=== PATIENT | male | born 1955 | race Caucasian/White ===

== ENCOUNTER 2021-09-02 15:10 | Emergency (ER) | payer MEDICARE, SELFPAY ==
--- NOTE | ~2021-09-02 | XR_ITS ---
EXAMINATION: XR hand LT min 3V INDICATION: Lacerations and pain of the left second and third fingers TECHNIQUE: Three views of the left hand are obtained COMPARISON: None available FINDINGS: There is no fracture, dislocation, or subluxation. The bones and joint spaces are normal. T here is soft tissue swelling of the second and third fingers. IMPRESSION: 1. No acute osseous abnormality. Reviewed, dictated and finalized at location F.
[2021-09-02 15:55] VITALS: BP 130/67; PULSE 61; RESP 16; TEMP 36.7; O2SAT 99
--- NOTE | 2021-09-02 16:45 | PC.NURSE ---
[facility] in [place] as pharmacy unable to locate in this system
--- NOTE | 2021-09-02 17:13 | ED.WOUNDLAC ---
HPI - Wound/Laceration General Chief Complaint: Wound/Laceration Stated Complaint: fingers lac Time Seen by Provider: 09/02/21 17:04 Source: patient Mode of arrival: ambulatory Limitations: no limitations History of Present Illness HPI narrative: This is a 66-year-old male that presents to the emergency department for a laceration sustained to the left hand. Reports he was trimming branches off of a tree. He accidentally sustained lacerations from a pruning saw. He is not up-to-date on tetanus. Denies decreased range of motion or numbness. Related Data Home Medications Medication Instructions Recorded Confirmed amlodipine DAILY 09/02/21 atorvastatin DAILY 09/02/21 lisinopril DAILY 09/02/21 propranolol PO DAILY 09/02/21 Allergies Allergy/AdvReac Type Severity Reaction Status Date / Time No Known Allergies Allergy Verified 09/02/21 16:40 Review of Systems Review of Systems: CONSTITUTIONAL: Denies fever SKIN: Reports laceration NEUROLOGIC: Denies numbness All systems reviewed & are unremarkable except as noted in HPI and below PMFSH Past Medical History Medical History (Updated 09/02/21 @ 18:08 by Judy Bustamante PA-C) History of chronic kidney disease Family History Family History (Updated 12/07/15 @ 23:19 by DOCTOR UNKNOWN) Mother Hypertension Family history of malignant neoplasm of breast in first degree relative Grandparent Family history of malignant neoplasm of uterus Father Family history of coronary artery disease Other Cerebrovascular accident Social History Social History Smoking status: Never smoker Alcohol intake: current Exam Narrative: GENERAL: Well-appearing, well-nourished, and in no acute distress. HEAD: Normocephalic, atraumatic. EYES: EOMI. EXTREMITIES: Normal range of motion. No edema or obvious deformity. Normal sensation. 1cm linear superficial laceration to the left fourth finger dorsal surface. 1.5cm irregular laceration to the left third finger dorsal surface SKIN: Warm, dry, no rash. NEURO: No focal deficits. Alert and oriented x3. PSYCH: Normal mood and affect Course Vital Signs Vital signs: Vital Signs Temperature 98.1 F 09/02/21 15:55 Pulse Rate 61 09/02/21 15:55 Respiratory Rate 16 09/02/21 15:55 Blood Pressure 130/67 09/02/21 15:55 Pulse Oximetry 99 09/02/21 15:55 Temperature 98.1 F 09/02/21 15:55 Pulse Rate 61 09/02/21 15:55 Respiratory Rate 16 09/02/21 15:55 Blood Pressure 130/67 09/02/21 15:55 Pulse Oximetry 99 09/02/21 15:55 Procedures Laceration Laceration 1: Date: 09/02/21 Time: 18:06 Site: hand Side (If applicable): left Size (cm): 1.5 Description: irregular Depth: simple, single layer Local Anesthetic: lidocaine 1% Amount of anesthesia used (mL): 4 Pre-repair: irrigated ====== Skin Level ====== Skin layer closed with: nylon Size (cm): 5-0 Number of sutures: 2 Technique: simple, interrupted ====== Subcutaneous Layer ====== ====== Muscle Layer ====== ====== Tendon Layer ====== MDM - Wound/Laceration MDM Narrative Medical decision making narrative: Patient presents to the emergency department for lacerations to the left hand sustained just prior to arrival. He is neurovascularly intact. Left hand x-rays without acute osseous abnormalities. His wounds were irrigated. Laceration to the third finger was closed with sutures. He was updated on tetanus. He was educated on wound care. He is to follow-up with primary care doctor. He was given warnings to return to the ER Imaging Data Radiologist's impression: ITS Impressions Hand X-Ray 09/02/21 17:26 IMPRESSION: 1. No acute osseous abnormality. Critical Care Time Critical Care Time Critical Care Time: No Discharge Plan Discharge Clinical Impression: Laceration Patient Disposition: Home
[2021-09-02 18:12] VITALS: BP 117/75; PULSE 60; RESP 14; O2SAT 98
[2021-09-02] MEDS: TETANUS,DIPHTHERIA,AC PERTUSSIS ADULT (0.5 ML) BOOSTRIX IM (18:30)
== END 2021-09-02 19:11 | disposition home or self-care (01) ==
PROVIDERS: Emergency Provider Emergency Medicine
DX: S61.213A Laceration without foreign body of left middle finger without damage to nail, initial encounter (principal); S61.215A Laceration without foreign body of left ring finger without damage to nail, initial encounter; N18.9 Chronic kidney disease, unspecified; Z23 Encounter for immunization; W27.8XXA Contact with other nonpowered hand tool, initial encounter; Y93.H2 Activity, gardening and landscaping
CPT/HCPCS: 12001; 73130; 90471; 90715; 99283